=== PATIENT | male | born 1945 | race Caucasian/White ===

== ENCOUNTER → 2017-08-06 11:43 | Outpatient (CLI) | payer MEDICARE, BC, SELFPAY ==
[2016-07-07 15:23] VITALS: BMI 34.7
[2017-08-06 12:49] LABS: AST(SGOT) 19 U/L (15-37); Alanine Aminotransfer ALT/SGPT 33 U/L (16-61); Albumin, Serum 3.3 g/dL (3.2-5.0); Alkaline Phosphatase 82 U/L (45-117); Bilirubin, Direct 0.18 mg/dL (0.00-0.30); Cholesterol 100 mg/dL (200); Globulin 4.5 g/dL (2.2-4.2); High Density Lipoprotein 30 mg/dL; Protein, Total 7.8 g/dL (6.4-8.2); T4 Total, Thyroxin 10.3 ug/dL (4.5-12.1); Triglycerides 145 mg/dL; Very Low Density Lipoprotein 29 mg/dL (5-40)
== END ==
PROVIDERS: Visit Provider Internal Medicine Cardiovascular Disease
DX: I48.0 Paroxysmal atrial fibrillation (principal); E78.00 Pure hypercholesterolemia, unspecified
CPT/HCPCS: 36415; 80061; 80076; 84436

== ENCOUNTER → 2018-12-08 09:40 | Outpatient (CLI) | payer MEDICARE, BC, SELFPAY ==
[2016-07-07 15:23] VITALS: BMI 34.7
[2018-11-16 08:43] VITALS: BMI 32.7
--- NOTE | 2018-12-08 09:42 | ECHOD_ITS ---
Reason For Study: A. fib/flutter Procedure This was a 2D Doppler, Color Flow transthoracic echocardiogram. The study was technically difficult. Exam performed in department. Left Ventricle Normal LV size. Mild concentric left ventricular hypertrophy. The estimated ejection fraction is 55 %. Unable to assess diastolic dysfunction due to arrhythmia. No regional wall motion abnormalities noted. Right Ventricle Normal RV size. Normal systolic function. Atria The left atrium is mildly enlarged. Normal right atrium. Mitral Valve Normal mitral valve. Tricuspid Valve Normal tricuspid valve. Aortic Valve The aortic valve is not well visualized. Pulmonic Valve The pulmonic valve is not well visualized. Great Vessels Normal aortic root. The pulmonary artery is normal size. Normal inferior vena cava. Pericardium/Pleural No pericardial effusion. Medication Patient deferred Definity. MMode/2D Measurements & Calculations LVIDd: 4.7 cm IVSd: 1.3 cm Ao root diam: 3.4 cm LVIDs: 3.7 cm LVPWd: 1.3 cm RVDd: 3.5 cm FS: 21.6 % LAV(MOD-bp): 89.4 ml LA A4 area: 28.2 cm2 LA dimension(2D): 4.5 cm LAV(MOD-bp) Indexed: 36.4 ml/m2 LAV(MOD-sp2): 64.0 ml LAV(MOD-sp4): 95.4 ml RA A4 area: 22.6 cm2 Doppler Measurements & Calculations MV E max telma: 84.0 cm/sec Ao V2 max: 98.5 cm/sec LV V1 max: 73.2 cm/sec Ao max P.9 mmHg LV V1 max P.1 mmHg PA V2 max: 61.8 cm/sec TR max telma: 290.3 cm/sec TR max P.8 mmHg Interpretation Summary Normal LV size. Mild concentric left ventricular hypertrophy. The estimated ejection fraction is 55 %. Unable to assess diastolic dysfunction due to arrhythmia. The left atrium is mildly enlarged. Ordering Physician: Kirit Thompson Referring Physician: Artemio Lovelace Performed By: Irlanda Arreola RDCS
== END ==
PROVIDERS: Family Provider Family Medicine; PCP Family Medicine; Referring Provider Internal Medicine Cardiovascular Disease; Visit Provider Internal Medicine Cardiovascular Disease
DX: I25.10 Atherosclerotic heart disease of native coronary artery without angina pectoris (principal); I48.91 Unspecified atrial fibrillation
CPT/HCPCS: 93306

== ENCOUNTER → 2018-12-24 09:05 | Outpatient (CLI) | payer MEDICARE, BC, SELFPAY ==
[2016-07-07 15:23] VITALS: BMI 34.7
[2018-12-24 08:14] VITALS: BMI 32.7
[2018-12-24 11:04] LABS: Thyroid Stim Hormone (TSH) 2.95 uIU/mL (0.358-3.74)
== END ==
PROVIDERS: Family Provider Family Medicine; PCP Family Medicine; Referring Provider Internal Medicine Cardiovascular Disease; Visit Provider Internal Medicine Cardiovascular Disease
DX: I48.1 Persistent atrial fibrillation (principal); I49.8 Other specified cardiac arrhythmias
CPT/HCPCS: 36415; 84443; 93225; 93226

== ENCOUNTER 2021-08-19 07:12 | Outpatient (CLI) | payer MEDICARE, BC, SELFPAY ==
[2016-07-07 15:23] VITALS: BMI 34.7
--- NOTE | 2021-08-19 07:16 | ECHOD_ITS ---
Reason For Study: SOB Procedure This was a 2D Doppler, Color Flow transthoracic echocardiogram. The study was technically difficult. Exam performed in department. Left Ventricle Normal LV size. Left ventricular systolic function is lower limits of normal. The estimated ejection fraction is 53 %. Basal inferoseptal: Hypokinetic. Atria Normal left atrium. The right atrium is mildly enlarged. Mitral Valve Normal mitral valve. Tricuspid Valve Normal tricuspid valve. Mild (1+) tricuspid valve insufficiency. Pulmonary artery systolic pressure is 35 mmHg. Aortic Valve Normal aortic valve. Pulmonic Valve Normal pulmonic valve. Great Vessels Normal aortic root. Pericardium/Pleural No pericardial effusion. MMode/2D Measurements & Calculations LVIDd: 4.3 cm IVSd: 1.3 cm Ao root diam: 3.6 cm LVIDs: 3.6 cm LVPWd: 1.1 cm RVDd: 3.4 cm FS: 15.2 % LAV(MOD-bp): 53.7 ml LVAd ap4: 28.3 cm2 LVAd ap2: 28.5 cm2 LAV(MOD-bp) Indexed: 23.3 ml/m2 LVLd ap4: 8.2 cm LVLd ap2: 8.3 cm LAV(MOD-sp2): 47.3 ml EDV(MOD-sp4): 83.5 ml EDV(MOD-sp2): 86.0 ml LAV(MOD-sp4): 58.1 ml EDV(sp4-el): 83.3 ml EDV(sp2-el): 82.4 ml LVAs ap4: 17.9 cm2 LVAs ap2: 16.8 cm2 LVLs ap4: 7.2 cm LVLs ap2: 7.4 cm ESV(MOD-sp4): 41.3 ml ESV(MOD-sp2): 34.6 ml ESV(sp4-el): 37.7 ml ESV(sp2-el): 32.1 ml EF(MOD-sp4): 50.6 % EF(MOD-sp2): 59.8 % EF(sp4-el): 54.8 % SV(MOD-sp4): 42.2 ml SV(MOD-sp2): 51.4 ml SV(sp4-el): 45.6 ml LA dimension(2D): 4.0 cm LA A4 area: 19.7 cm2 RA A4 area: 23.9 cm2 Doppler Measurements & Calculations MV E max telma: 89.1 cm/sec Ao V2 max: 92.1 cm/sec LV V1 max: 73.0 cm/sec Ao max P.4 mmHg LV V1 max P.1 mmHg PA V2 max: 79.2 cm/sec TR max telma: 278.2 cm/sec TR max P.4 mmHg ECHO/Echo Complete Interpretation Summary Normal LV size. Left ventricular systolic function is lower limits of normal. Pulmonary artery systolic pressure is 35 mmHg. The estimated ejection fraction is 53 %. Ordering Physician: Jagruti Morel Referring Physician: Jagruti Morel Performed By: Irlanda Arreola RDCS
--- NOTE | 2021-08-19 16:34 | STRESSREP ---
Stress Test Report Pharmacologic myocardial perfusion stress test. 75-year-old male with a history of dyspnea and shortness of breath. Stress protocol: Resting EKG demonstrates atrial fibrillation with a rate of 62 bpm and a leftward axis. Resting blood pressure is 150/82 mmHg. 0.4 mg of regadenoson was infused per usual protocol followed by rapid intravenous saline flush injection continuous EKG monitoring was performed. The patient was noted to have a maximum heart rate of 85 bpm which was 58% of maximum predicted heart rate the maximum workload was 1 metabolic equivalent. At rest there were no ST or T wave changes noted to suggest abnormal flow reserve and at peak infusion nonspecific ST changes were noted with did not meet the criteria for ischemia. No clinical angina was noted. Myocardial perfusion protocol. 14.2 mCi of technetium 99m sestamibi was injected at rest. 0.4 mg of regadenoson was infused per usual protocol. At peak infusion 44.6 mCi of technetium 99m sestamibi was injected stress images were obtained stress and rest images were reconstructed and compared in the short axis vertical long and horizontal long axis. Gated images were also obtained. Perfusion SPECT analysis: Review of the stress images demonstrate normal uptake of tracer noted in all areas of the myocardium. The resting images similarly demonstrate normal uptake of tracer noted in all areas of the myocardium. No areas of reversibility are noted suggest ischemia no previous infarct is noted. Gated SPECT analysis: The gated ejection fraction is 68%. Conclusion: Normal pharmacologic myocardial perfusion stress test. Preserved ejection fraction.
== END 2021-08-19 23:59 | disposition home or self-care (01) ==
LOC: CVS 07:15
PROVIDERS: Referring Provider Nurse Practitioner Gerontology; Visit Provider Nurse Practitioner Gerontology
DX: R07.9 Chest pain, unspecified (principal); I42.8 Other cardiomyopathies; I25.10 Atherosclerotic heart disease of native coronary artery without angina pectoris; R06.00 Dyspnea, unspecified
CPT/HCPCS: 78452; 93017; 93306; A9500; A4216; J2785

== ENCOUNTER 2021-10-03 10:28 | Outpatient (CLI) | payer MEDICARE, BC, SELFPAY ==
[2016-07-07 15:23] VITALS: BMI 34.7
[2021-10-03 11:16] LABS: Absolute Lymphocyte Count 1.17 X10^3/uL (0.83-4.51); Absolute Neutrophil Count 6.1 X10^3/uL (2.0-7.7); Basophil# 0.06 X10^3/uL; Basophil% 0.7 % (0-1); Eosinophil# 0.27 X10^3/uL; Eosinophils% 3.1 % (0-5); Hematocrit 48.5 % (40-54); Hemoglobin 15.3 g/dL (13.0-16.5); Lymphocyte # 1.17 X10^3/ul (0.83-4.51); Lymphocyte % 13.5 % (19-41); Mean Corp Hgb Conc 31.5 g/dL (32-36); Mean Corpuscular Hgb 29.7 pg (27.0-32.0); Mean Corpuscular Volume 94.2 fL (80-94); Mean Platelet Vol. 11.7 fl (6.2-12.0); Monocyte# 1.01 X10^3/uL; Monocyte% 11.6 % (0-10); NRBC Flagged by Analyzer 0 % (0-5); Neutrophil # 6.14 X10^3/uL (2.7-7.7); Neutrophil % 70.8 % (47-70); Platelet Count 209 K/mm3 (150-450); RBC Distribution Width CV 14.4 % (11.6-14.6); RBC Distribution Width SD 50.1 fl (35.1-43.9); Red Blood Count 5.15 M/mm3 (4.6-6.2); White Blood Count 8.7 K/mm3 (4.4-11.0)
[2021-10-03 11:37] LABS: BNP,B-Type NATRIURETIC PEPTIDE 277.8 pg/mL (0-100)
[2021-10-03 11:40] LABS: AST(SGOT) 16 U/L (15-37); Alanine Aminotransfer ALT/SGPT 21 U/L (16-61); Albumin, Serum 3.4 g/dL (3.2-5.0); Alkaline Phosphatase 117 U/L (45-117); Bilirubin, Direct 0.33 mg/dL (0.00-0.30); Cholesterol 89 mg/dL (200); High Density Lipoprotein 27 mg/dL; Protein, Total 8.4 g/dL (6.4-8.2); Triglycerides 113 mg/dL; Very Low Density Lipoprotein 23 mg/dL (5-40)
== END 2021-10-03 23:59 | disposition home or self-care (01) ==
LOC: LAB 10:29
PROVIDERS: Referring Provider Internal Medicine Cardiovascular Disease; Visit Provider Internal Medicine Cardiovascular Disease
DX: I42.8 Other cardiomyopathies (principal); I25.10 Atherosclerotic heart disease of native coronary artery without angina pectoris; Z95.5 Presence of coronary angioplasty implant and graft
CPT/HCPCS: 36415; 80061; 80076; 83880; 85025

== ENCOUNTER → 2021-10-17 | Outpatient (CLI) | payer MEDICARE, BC, SELFPAY ==
[2016-07-07 15:23] VITALS: BMI 34.7
--- NOTE | 2021-10-17 08:38 | ART_ITS ---
Reason For Study: claudication Procedure A bilateral lower extremity continuous wave Doppler with analog waveform analysis and ankle brachial indexes. Left Segmental Pressures Left brachial= 171mmHg. Left posterior tibial artery = 216mmHg. Left dorsalis pedis artery = 189mmHg. The left dorsalis pedis waveforms are triphasic. The left posterior tibial artery waveforms are triphasic. Right Segmental Pressures Right brachial= 188mmHg. Right posterior tibial artery = 223mmHg. Right dorsalis pedis artery = 230mmHg. The right dorsalis pedis waveforms are triphasic. The right posterior tibial artery waveforms are triphasic. Indices The right ankle brachial index by the dorsalis pedis is 1.22. The right ankle brachial index by the posterior tibial artery is 1.19. The left ankle brachial index by the dorsalis pedis is 1.01. The left ankle brachial index by the posterior tibial artery is 1.15. VL/Ankle Brachial Index Interpretation Summary Bilateral lower extremities no evidence of significant occlusive disease at res t with triphasic flow noted in CASH 1.22 and 1.15. Ordering Physician: Kirit Thompson Performed By: Tony Victor RVT
== END | disposition home or self-care (01) ==
PROVIDERS: PCP Family Medicine; Referring Provider Internal Medicine Cardiovascular Disease; Visit Provider Internal Medicine Cardiovascular Disease
DX: I72.8 Aneurysm of other specified arteries (principal)
CPT/HCPCS: 93922

== ENCOUNTER → 2022-07-21 | Outpatient (CLI) | payer MEDICARE, BC, SELFPAY ==
[2016-07-07 15:23] VITALS: BMI 34.7
--- NOTE | 2022-07-21 07:52 | CT_ITS ---
STUDY: CTA CHEST, ABDOMEN T PELVIS WITH CONTRAST REASON FOR EXAM: Male, 76 years old. s/p ascending aorta repair, descending stent, AAA RADIATION DOSAGE (If Supplied By Facility): CTDIvol = ( 19.62 ) mGy, DLP = ( 1413.57 ) mGycm TECHNIQUE: Transaxial imaging was performed following intravenous administration of IV 100mL Isovue-300. Individualized dose optimization techniques were used for this CT. COMPARISON: No relevant priors. FINDINGS: CHEST A vascular graft is seen from the right subclavian artery to the right common carotid artery. Hyperinflation. Mild degree of emphysematous changes worse in the upper lobes. There is no demonstrated pleural abnormality. Sternal cerclage wires are present from a prior sternotomy. There are calcifications of the coronary arteries. There are multiple small lymph nodes within the mediastinum, which are normal in size and morphology most compatible with reactive lymph hyperplasia. Normal hilar regions. Normal unenhanced pulmonary arteries. The descending thoracic aorta is unremarkable. The vascular endoluminal stent graft is seen in the aortic arch and proximal descending thoracic aorta. Calcific plaque is seen throughout the descending thoracic aorta. There is a 9.2 mm x 7.6 mm contrast collection along the anterior aspect of the descending thoracic aorta. This may represent an ulcerated plaque versus local dissection. There are multi-level degenerative changes of the thoracic spine. ABDOMEN Normal liver. Normal gallbladder and extrahepatic biliary system. Normal spleen. Normal pancreas. Normal bilateral adrenal glands. Normal right kidney. Normal left kidney. Normal visualized stomach. Normal small intestine. There are scattered colonic diverticula consistent with diverticulosis. The appendix is visualized and appears normal. There is diffuse atherosclerotic calcification of the abdominal aorta and its major visceral branches. There is evidence of a saccular infrarenal abdominal aortic aneurysm with a transverse dimension of 4.4 cm in AP dimension of 3.8 cm. This extends down to the aortic bifurcation.Normal inferior vena cava. There is borderline retroperitoneal lymphadenopathy with enlarged nodes no greater than 10mm in the short axis diameter. Normal abdominal wall. There are diffuse degenerative changes of the visualized lumbar spine this is worse at the L3-L4 and L4-L5 levels.. PELVIS Diffuse urinary bladder wall thickening. There is evidence of trabeculation. The prostate measures 3.4 cm x 4.6 cm. Normal visualized small intestine. Normal visualized colon. There is no pelvic fluid. There is no pelvic lymphadenopathy or mass lesion. There is diffuse atherosclerotic calcification of the pelvic arteries. CT/CTA Chst, Abd, Pel W and/or WO IMPRESSION: Status post endoluminal stent grafting of the aortic arch and proximal descending thoracic aorta. There is a 9.2 mm x 7.6 mm contrast collection along the anterior aspect of the distal descending thoracic aorta. This most likely represents an ulcerated plaque. Saccular infrarenal abdominal aortic aneurysm measuring 4.4 cm in transverse dimension. Electronically Signed: Ryan Ferrer MD at 10:37 EST ,
[2022-07-21 08:20] LABS: CREATININE FINGERSTICK 1.1 mg/dL (0.70-1.30); EGFR FINGERSTICK > 60.0000 mL/min (>60)
== END | disposition home or self-care (01) ==
PROVIDERS: Referring Provider Surgery Trauma Surgery; Visit Provider Surgery Trauma Surgery
DX: Z86.79 Personal history of other diseases of the circulatory system (principal); Z98.890 Other specified postprocedural states
CPT/HCPCS: 71275; 74174; Q9967

== ENCOUNTER → 2023-10-01 | Outpatient (CLI) | payer MEDICARE, BC, SELFPAY ==
[2016-07-07 15:23] VITALS: BMI 34.7
--- NOTE | 2023-10-01 10:07 | RAD_ITS ---
INDICATION: SOB EXAMINATION/TECHNIQUE: X-RAY - XR Chest 2 Views COMPARISON: FINDINGS: LINES/DEVICES: Sternotomy wires are noted over the mediastinum. LUNGS: No consolidation, edema or effusion. Bibasilar interstitial prominence. Surgical clips over the lung apices. No pneumothorax. MEDIASTINUM AND CARDIOVASCULAR STRUCTURES: Cardiac silhouette not enlarged. There is a stent at the aortic arch. Central airways and mediastinal contour are unremarkable. BONES AND SOFT TISSUES: Unremarkable. RAD/Chest PA and Lateral IMPRESSION: Basilar interstitial prominence. Electronically Signed: Filipe Bullock DO at 23:21 EDT Reading Location ID and State: [facility] / [place] Tel [phone], Service support ,
[2023-10-01 10:48] LABS: Absolute Lymphocyte Count 0.89 X10^3/uL (0.83-4.51); Absolute Neutrophil Count 8.6 X10^3/uL (2.0-7.7); Basophil# 0.08 X10^3/uL; Basophil% 0.7 % (0-1); Eosinophil# 0.35 X10^3/uL; Eosinophils% 3.1 % (0-5); Hematocrit 45.8 % (40-54); Hemoglobin 14.2 g/dL (13.0-16.5); Lymphocyte # 0.89 X10^3/ul (0.83-4.51); Lymphocyte % 7.9 % (19-41); Mean Corpuscular Hgb 30.1 pg (27.0-32.0); Mean Corpuscular Volume 97.2 fL (80-94); Monocyte# 1.38 X10^3/uL; Monocyte% 12.2 % (0-10); NRBC Flagged by Analyzer 0 % (0-5); Neutrophil # 8.59 X10^3/uL (2.7-7.7); Neutrophil % 75.7 % (47-70); Platelet Count 214 K/mm3 (150-450); RBC Distribution Width CV 13.9 % (11.6-14.6); Red Blood Count 4.71 M/mm3 (4.6-6.2); White Blood Count 11.3 K/mm3 (4.4-11.0)
[2023-10-01 11:19] LABS: BNP,B-Type NATRIURETIC PEPTIDE 279.6 pg/mL (0-100)
[2023-10-01 11:35] LABS: Anion Gap 5 (5-15); BUN 24 mg/dL (7-18); BUN/Creat Ratio 14.8 RATIO (10-20); Calcium,Total 8.9 mg/dL (8.5-10.1); Chloride 111 mmol/L (98-107); Creatinine, Serum 1.62 mg/dL (0.70-1.30); EST Glomerular Filtration Rate 44 mL/min (>60); Est Glom Filt Rate - Afr Amer 53 mL/min (>60); Glucose 104 mg/dL (74-106); Potassium 3.4 mmol/L (3.5-5.1); Sodium Level 142 mmol/L (136-145)
== END | disposition home or self-care (01) ==
PROVIDERS: Referring Provider Physician Assistant Medical; Visit Provider Physician Assistant Medical
DX: R06.09 Other forms of dyspnea (principal); I25.10 Atherosclerotic heart disease of native coronary artery without angina pectoris
CPT/HCPCS: 36415; 71046; 80048; 83880; 85025

== ENCOUNTER → 2024-04-12 | Outpatient (CLI) | payer MEDICARE, BC, SELFPAY ==
[2016-07-07 15:23] VITALS: BMI 34.7
--- NOTE | 2024-04-12 12:37 | ECHOD_ITS ---
Reason For Study: CONGESTIVE HEART FAILURE Procedure This was a 2D Doppler, Color Flow transthoracic echocardiogram. The study was technically difficult. Exam performed in department. Left Ventricle Normal LV size. The left ventricular ejection fraction is 50 %. There is borderline global hypokinesis of the left ventricle. Right Ventricle Normal RV size. Normal systolic function. Atria Normal left atrium. The right atrium is moderately enlarged. Mitral Valve Normal mitral valve. Mild (1+) eccentric mitral valve insufficiency. Tricuspid Valve Normal tricuspid valve. Mild (1+) tricuspid valve insufficiency. Pulmonary artery systolic pressure is 51 mmHg. Pulmonic Valve The pulmonic valve is not well visualized. Great Vessels Normal aortic root. Pericardium/Pleural No pericardial effusion. MMode/2D Measurements & Calculations LVIDd: 5.2 cm IVSd: 1.5 cm LVOT diam: 2.1 cm LVIDs: 4.2 cm LVPWd: 1.0 cm LVOT area: 3.6 cm2 RVDd: 3.8 cm FS: 19.2 % asc Aorta Diam: 3.6 cm LAV(MOD-bp): 46.9 ml LVAd ap4: 26.0 cm2 LAV(MOD-bp) Indexed: 20.1 ml/m2 LVLd ap4: 7.6 cm LAV(MOD-sp2): 38.2 ml EDV(MOD-sp4): 73.3 ml LAV(MOD-sp4): 50.6 ml EDV(sp4-el): 75.4 ml LVAs ap4: 17.5 cm2 LVLs ap4: 6.6 cm ESV(MOD-sp4): 41.0 ml ESV(sp4-el): 39.7 ml EF(MOD-sp4): 44.1 % EF(sp4-el): 47.4 % SV(MOD-sp4): 32.3 ml SV(MOD-sp2): 32.1 ml LVAd ap2: 23.9 cm2 LVLd ap2: 7.6 cm EDV(MOD-sp2): 66.6 ml EDV(sp2-el): 63.7 ml LVAs ap2: 15.9 cm2 LVLs ap2: 6.6 cm ESV(MOD-sp2): 34.5 ml ESV(sp2-el): 32.3 ml EF(MOD-sp2): 48.2 % SV(sp4-el): 35.8 ml Ao sinus diam: 3.6 cm LA A4 area: 18.4 cm2 LA dimension(2D): 4.2 cm TAPSE: 1.2 cm RA A4 area: 26.1 cm2 Time Measurements MV dec time: 0.16 sec Doppler Measurements & Calculations MV E max eliazar: 85.9 cm/sec Lat Peak E' Eliazar: 7.9 cm/sec Med Peak E' Eliazar: 7.9 cm/sec E/E' lat: 10.9 E/E' med: 10.9 Ao V2 max: 87.5 cm/sec LV V1 max: 65.6 cm/sec SV(LVOT): 43.9 ml Ao max P.1 mmHg LV V1 max P.7 mmHg Ao V2 mean: 67.3 cm/sec LV V1 mean P.0 mmHg Ao mean P.9 mmHg LV V1 mean: 48.7 cm/sec Ao V2 VTI: 16.8 cm LV V1 VTI: 12.2 cm AV (velocity ratio): 0.73 ISA(I,D): 2.6 cm2 ISA(V,D): 2.7 cm2 TR max eliazar: 346.7 cm/sec TR max P.1 mmHg ECHO/Echo Complete Interpretation Summary Normal LV size. The left ventricular ejection fraction is 50 %. There is borderline global hypokinesis of the left ventricle. Pulmonary artery systolic pressure is 51 mmHg. Ordering Physician: Kirit Thompson Referring Physician: Kirit Thompson Performed By: Madiha Kellogg, ALVINO
== END | disposition home or self-care (01) ==
LOC: CVS 12:37
PROVIDERS: Referring Provider Internal Medicine Cardiovascular Disease; Visit Provider Internal Medicine Cardiovascular Disease
DX: R06.09 Other forms of dyspnea (principal)
CPT/HCPCS: 93306